=== PATIENT | female | born 1965 | race Asian ===

== ENCOUNTER 2018-11-11 06:53 | Day surgery (SDC) | payer BC ==
[~2018-11-11] VITALS: Ht 162.6 cm; Wt 61.3 kg
[2018-11-11 07:31] VITALS: BP 170/100
[2018-11-11] MEDS ORDERED: MULT-658 PO (07:40)
[2018-11-11] MEDS ORDERED: LINA5TAB PO (07:40)
[2018-11-11] MEDS ORDERED: GLIP10TA24 PO (07:40)
[2018-11-11] MEDS ORDERED: OMEG-133 PO (07:40)
[2018-11-11] MEDS ORDERED: METF1000 PO (07:40)
[2018-11-11] MEDS ORDERED: EMPA25TA PO (07:40)
[2018-11-11] MEDS ORDERED: LOSA25TA25 PO (07:40)
[2018-11-11 07:41] VITALS: BP 170/100
[2018-11-11] MEDS ORDERED: LIDOCAINE GEL 2%, 5ML ONE (08:00)
[2018-11-11] MEDS ORDERED: LIDOCAINE 2%, 20ML ONE (08:00)
[2018-11-11] MEDS ORDERED: LIDOCAINE 4% TOPICAL SOLUTION 50 ML ONE (08:00)
[2018-11-11] MEDS ORDERED: LACTATED RINGERS 1,000 ML IV SCH (08:07)
[2018-11-11 08:09] LABS: BASOPHILS # (AUTO) 0.04 x10^3/uL (0-0.1); BASOPHILS % (AUTO) 0 % (0-1); EOSINOPHILS # (AUTO) 0.18 x10^3/uL (0-0.4); EOSINOPHILS % (AUTO) 2 % (1-7); LYMPHOCYTES # (AUTO) 1.94 x10^3/uL (1-3.4); LYMPHOCYTES % (AUTO) 18 % (22-44); MD NO; MEAN CORPUSCULAR HEMOGLOBIN 28.2 pg (27.0-34.8); MEAN CORPUSCULAR HGB CONC 32.7 g/dL (32.4-35.8); MEAN PLATELET VOLUME 7.7 fL (7.4-10.4); MONOCYTES # (AUTO) 0.65 x10^3/uL (0.2-0.8); MONOCYTES % (AUTO) 6 % (2-9); NEUTROPHILS # (AUTO) 7.99 x10^3/uL (1.8-6.8); NEUTROPHILS % (AUTO) 74 % (42-75); PLATELET COUNT 286 x10^3/uL (130-400); RED BLOOD COUNT 5.02 x10^6/uL (3.82-5.3); RED CELL DISTRIBUTION WIDTH 13.4 % (9.6-15.2)
[2018-11-11 08:20] LABS: INTERNATIONAL NORMALIZED RATIO 0.95 (0.93-1.1)
[2018-11-11 08:34] LABS: ALANINE AMINOTRANSFERASE 43 U/L (12-78); ALBUMIN 4.1 g/dL (3.4-5.0); ANION GAP 6 mmol/L (5-15); CALCIUM 9.1 mg/dL (8.5-10.1); CHLORIDE 108 mmol/L (98-107); CREATININE 0.67 mg/dL (0.55-1.02)
[2018-11-11 08:37] LABS: ALKALINE PHOSPHATASE 90 U/L (45-117); BILIRUBIN,TOTAL 0.4 mg/dL (0.2-1.0); TOTAL PROTEIN 8.6 g/dL (6.4-8.2)
[2018-11-11] MEDS ORDERED: FENTANYL PF 100 MCG/2ML ONE (08:56)
[2018-11-11] MEDS ORDERED: MIDAZOLAM 1 MG/ML, 5ML ONE ×2 (08:56)
== END 2018-11-11 12:15 | disposition home or self-care (01) ==
LOC: OUT 06:53
PROVIDERS: ATTEND Internal Medicine Critical Care Medicine
DX: J18.9 Pneumonia, unspecified organism (principal); J98.4 Other disorders of lung; I10 Essential (primary) hypertension; E11.9 Type 2 diabetes mellitus without complications; Z79.84 Long term (current) use of oral hypoglycemic drugs; Z79.01 Long term (current) use of anticoagulants; Z79.899 Other long term (current) drug therapy
CPT/HCPCS: 31624; 36415; 80053; 85025; 85610; 85730; 87070; 87102; 87116; 87205; 87206; 88112; 88305; 88312; 99152; 99153; J2250; J3010; 31622; 87015